=== PATIENT | female | born 1990 | race Caucasian/White ===

== ENCOUNTER 2018-06-04 16:46 | Emergency (ER) | payer MEDICAID ==
[~2018-06-04] VITALS: Ht 160 cm; Wt 61.9 kg
[~2018-06-04 16:46] MED LIST: BCP; FAMO20TA44 PO; HYDR-569 PO; IBUP-1984 PO; OMEP20CA10 PO
[2018-06-04 17:07] VITALS: BP 121/91
== END 2018-06-04 17:39 | disposition left against medical advice (07) ==
LOC: ER 16:47
DX: R51 Headache (principal); Z88.8 Allergy status to other drugs, medicaments and biological substances; Z79.899 Other long term (current) drug therapy
CPT/HCPCS: 99281

== ENCOUNTER 2018-07-22 22:36 | Emergency (ER) | payer MEDICAID ==
[~2018-07-22] VITALS: Ht 160 cm; Wt 57.5 kg
[2018-07-22 23:27] LABS: BASOPHILS % (AUTO) 0.5 % (0-1); EOSINOPHILS # (AUTO) 0.4 X10'3 (0-0.9); EOSINOPHILS % (AUTO) 4.8 % (0-6); HEMATOCRIT 43.5 % (35.0-45.0); HEMOGLOBIN 14.2 g/dl (12.0-16.0); LYMPHOCYTES # (AUTO) 2.5 X10'3 (1.1-4.8); LYMPHOCYTES % (AUTO) 33.7 % (21-51); MEAN CORPUSCULAR HEMOGLOBIN 29.1 PG (27.0-31.0); MEAN CORPUSCULAR HGB CONC 32.7 % (33.0-36.5); MEAN CORPUSCULAR VOLUME 89.1 FL (78-98); MEAN PLATELET VOLUME 8.6 FL (7.4-10.4); MONOCYTES # (AUTO) 0.4 X10'3 (0-0.9); MONOCYTES % (AUTO) 5.8 % (2-12); NEUTROPHILS # (AUTO) 4.1 X10'3 (1.8-7.7); NEUTROPHILS % (AUTO) 55.2 % (42-75); PLATELET COUNT 327 X10'3 (140-440); RED BLOOD COUNT 4.88 X10'6 (4.20-5.60); RED CELL DISTRIBUTION WIDTH 13.7 % (11.5-14.5); WHITE BLOOD COUNT 7.5 X10'3 (4.5-11.0)
[2018-07-22 23:38] LABS: CLARITY,URINE SLIGHTLY CLOUDY (Clear); COLOR,URINE YELLOW (Yellow); GLUCOSE, URINE NEGATIVE (Neg); KETONES,URINE NEGATIVE (Neg); LEUKOCYTE ESTERASE ,URINE SMALL (Neg); NITRITES, URINE NEGATIVE (Neg); OCCULT BLOOD,URINE LARGE (Neg); PH,URINE 6.5 (4.8-8.0); PROTEIN,URINE NEGATIVE (Neg); UROBILINOGEN,URINE 0.2 E.U/dL (0.2-1.0)
[2018-07-22 23:41] LABS: URINE AMPHETAMINE SCREEN NEGATIVE (Neg); URINE BARBITUATE SCREEN NEGATIVE (Neg); URINE BENZODIAZEPINES SCREEN NEGATIVE (Neg); URINE CANNABINOID SCREEN NEGATIVE (Neg); URINE COCAINE SCREEN NEGATIVE (Neg); URINE METHADONE SCREEN NEGATIVE (Neg); URINE OPIATE SCREEN NEGATIVE (Neg); URINE PHENCYCLIDINE SCREEN NEGATIVE (Neg)
[2018-07-22 23:44] LABS: UA COLLECTION TYPE CLN CATCH MIDSTREAM
[2018-07-22 23:47] LABS: ALANINE AMINOTRANSFERASE 38 U/L (12-78); ALBUMIN 4.2 G/DL (3.4-5.0); ALKALINE PHOSPHATASE 75 IU/L (46-116); ANION GAP 11 (8-16); ASPARTATE AMINO TRANSFERASE 22 U/L (10-37); BILIRUBIN,TOTAL 0.6 MG/DL (0.1-1.0); BLOOD UREA NITROGEN 11 MG/DL (7-18); BUN/CREATININE RATIO 13.8 (6.6-38.0); CHLORIDE 103 MMOL/L (99-107); GLUCOSE 101 MG/DL (70-104); POTASSIUM 3.8 MMOL/L (3.5-5.1); SODIUM 139 MMOL/L (135-145); TOTAL CARBON DIOXIDE 25.1 MMOL/L (24-32); TOTAL PROTEIN 8.3 G/DL (6.4-8.2); eGFR 85 ML/MIN
[2018-07-22 23:48] LABS: BACTERIA,URINE FEW /HPF (Neg); RBC,URINE 0-2 /HPF (0-2); SPERM FEW /HPF; SQUAMOUS EPITHELIAL CELL,UR MODERATE /LPF (FEW)
[2018-07-22 23:57] LABS: ETHANOL < 0.010 GM/DL (0.0-0.010)
[2018-07-23 00:11] LABS: URINE HCG NEGATIVE (NEG)
[2018-07-23 00:21] VITALS: BP 108/74
[2018-07-23] MEDS ORDERED: aspirin 325mg tablet PO ONE (01:20)
[2018-07-23] MEDS ORDERED: normal saline 1000ml 1,000 ML IV SCH (02:09)
[2018-07-23] MEDS ORDERED: morphine 2 MG/ML inj. syringe IV PRN ×2 (02:10)
[2018-07-23] MEDS ORDERED: magnesium hydroxide 30ml (MOM) UD suspension PO PRN (02:10)
[2018-07-23] MEDS ORDERED: diphenhydrAMINE 50 mg/ml inj IV PRN (02:10)
[2018-07-23] MEDS ORDERED: ondansetron/PF 4mg/2ml inj IV PRN (02:10)
[2018-07-23] MEDS ORDERED: mag hydrox/Alum hydrox/simeth 30ml oral suspension PO PRN (02:10)
[2018-07-23] MEDS ORDERED: acetaminophen 325mg tablet PO PRN ×2 (02:10)
[2018-07-23] MEDS ORDERED: diphenhydrAMINE 25mg capsule PO PRN (02:10)
[2018-07-23] MEDS ORDERED: bisacodyl 10mg suppository rectal RC PRN (02:10)
[2018-07-23] MEDS ORDERED: metoclopramide 5 mg/ml inj IV PRN (02:10)
[2018-07-23] MEDS ORDERED: HYDROcodone/acetaminophen 5mg/325mg tablet PO PRN (02:10)
[2018-07-23] MEDS ORDERED: HYDROmorphone 1 mg/ml syringe IV PRN ×2 (02:10)
[2018-07-23] MEDS ORDERED: acetaminophen 650mg rectal suppository RC PRN (02:10)
[2018-07-23] MEDS ORDERED: HYDROcodone/acetaminophen 10/325mg tab PO PRN (02:10)
[2018-07-23] MEDS ORDERED: normal saline 1000ml 1,000 ML IVB ONE (02:15)
[2018-07-23] MEDS ORDERED: nicotine 21mg patch - 24 hr TD ONE (02:20)
[2018-07-23] MEDS ORDERED: aspirin 81mg tab.chew PO ONE (02:20)
[2018-07-23] MEDS ORDERED: atorvastatin 20mg tablet PO SCH (08:00)
[2018-07-23] MEDS ORDERED: nitrofuran/nitrofuran macrocrysal 100 MG capsule PO SCH (08:00)
[2018-07-23] MEDS ORDERED: docusate sod 100mg capsule PO SCH (08:00)
[2018-07-23] MEDS ORDERED: temazepam 15mg capsule PO PRN (21:00)
== END 2018-07-23 02:26 | disposition left against medical advice (07) ==
LOC: ER 22:36
DX: I63.9 Cerebral infarction, unspecified (principal); R41.82 Altered mental status, unspecified; R41.3 Other amnesia; R51 Headache; F41.9 Anxiety disorder, unspecified; F32.9 Major depressive disorder, single episode, unspecified; F17.200 Nicotine dependence, unspecified, uncomplicated; Z91.018 Allergy to other foods; Z86.73 Personal history of transient ischemic attack (TIA), and cerebral infarction without residual deficits; Z86.718 Personal history of other venous thrombosis and embolism
CPT/HCPCS: 36415; 70450; 80053; 80305; 80320; 81001; 81025; 82948; 84443; 85025; 87088; 93005; 99285

== ENCOUNTER 2018-08-29 08:45 | Emergency (ER) | payer MEDICAID ==
[~2018-08-29] VITALS: Ht 160 cm; Wt 56.4 kg
[2018-08-29] MEDS ORDERED: normal saline 1000ML IV soln IVB ONE (09:00)
[2018-08-29 09:11] LABS: BASOPHILS % (AUTO) 0.5 % (0-1); EOSINOPHILS # (AUTO) 0.3 X10'3 (0-0.9); EOSINOPHILS % (AUTO) 4.3 % (0-6); HEMATOCRIT 39.9 % (35.0-45.0); HEMOGLOBIN 13.4 g/dl (12.0-16.0); LYMPHOCYTES # (AUTO) 1.5 X10'3 (1.1-4.8); LYMPHOCYTES % (AUTO) 24.1 % (21-51); MEAN CORPUSCULAR HEMOGLOBIN 30.1 PG (27.0-31.0); MEAN CORPUSCULAR HGB CONC 33.6 % (33.0-36.5); MEAN CORPUSCULAR VOLUME 89.4 FL (78-98); MONOCYTES # (AUTO) 0.4 X10'3 (0-0.9); MONOCYTES % (AUTO) 6.7 % (2-12); NEUTROPHILS # (AUTO) 3.9 X10'3 (1.8-7.7); NEUTROPHILS % (AUTO) 64.4 % (42-75); PLATELET COUNT 336 X10'3 (140-440); RED BLOOD COUNT 4.46 X10'6 (4.20-5.60); RED CELL DISTRIBUTION WIDTH 13.2 % (11.5-14.5); WHITE BLOOD COUNT 6.1 X10'3 (4.5-11.0)
[2018-08-29 09:30] LABS: ALANINE AMINOTRANSFERASE 49 U/L (12-78); ALBUMIN 3.9 G/DL (3.4-5.0); ALKALINE PHOSPHATASE 85 IU/L (46-116); ANION GAP 8 (8-16); ASPARTATE AMINO TRANSFERASE 23 U/L (10-37); BILIRUBIN,TOTAL 0.5 MG/DL (0.1-1.0); BLOOD UREA NITROGEN 11 MG/DL (7-18); BUN/CREATININE RATIO 15.7 (6.6-38.0); CALCIUM 8.8 MG/DL (8.5-10.1); CHLORIDE 104 MMOL/L (99-107); GLUCOSE 99 MG/DL (70-104); SODIUM 139 MMOL/L (135-145); TOTAL CARBON DIOXIDE 27.1 MMOL/L (24-32); TOTAL PROTEIN 7.8 G/DL (6.4-8.2); eGFR > 90 ML/MIN
[2018-08-29 09:33] LABS: ETHANOL < 0.010 GM/DL (0.0-0.010); TROPONIN I < 0.04 NG/ML (0.0-0.05)
[2018-08-29 09:38] LABS: INR 1.1 INR; PROTHROMBIN TIME 10.7 SECONDS (9.0-12.0)
[2018-08-29] MEDS ORDERED: dexamethasone sod phosphate 10mg/ml inj IV STA (09:56)
[2018-08-29] MEDS ORDERED: ketorolac trometh. 30mg/ml inj. IV ONE (10:00)
[2018-08-29] MEDS ORDERED: metoclopramide 5 mg/ml inj IV ONE (10:00)
[2018-08-29 10:25] LABS: CLARITY,URINE SLIGHTLY CLOUDY (Clear); COLOR,URINE YELLOW (Yellow); GLUCOSE, URINE NEGATIVE (Neg); KETONES,URINE NEGATIVE (Neg); LEUKOCYTE ESTERASE ,URINE NEGATIVE (Neg); NITRITES, URINE NEGATIVE (Neg); OCCULT BLOOD,URINE SMALL (Neg); PROTEIN,URINE NEGATIVE (Neg); UROBILINOGEN,URINE 0.2 E.U/dL (0.2-1.0)
[2018-08-29 10:36] LABS: URINE AMPHETAMINE SCREEN NEGATIVE (Neg); URINE BARBITUATE SCREEN NEGATIVE (Neg); URINE BENZODIAZEPINES SCREEN NEGATIVE (Neg); URINE CANNABINOID SCREEN NEGATIVE (Neg); URINE COCAINE SCREEN NEGATIVE (Neg); URINE METHADONE SCREEN NEGATIVE (Neg); URINE OPIATE SCREEN NEGATIVE (Neg); URINE PHENCYCLIDINE SCREEN NEGATIVE (Neg)
[2018-08-29 10:38] LABS: MUCUS STRANDS MANY /LPF (Neg); SQUAMOUS EPITHELIAL CELL,UR MANY /LPF (FEW); UA COLLECTION TYPE CLN CATCH MIDSTREAM
[2018-08-29 10:39] LABS: BACTERIA,URINE 1+ /HPF (Neg); RBC,URINE 0-2 /HPF (0-2); WBC,URINE 0-4 /HPF (0-4)
[2018-08-29 12:01] VITALS: BP 91/59
== END 2018-08-29 12:03 | disposition home or self-care (01) ==
LOC: ER 08:46
DX: G43.909 Migraine, unspecified, not intractable, without status migrainosus (principal); Z86.73 Personal history of transient ischemic attack (TIA), and cerebral infarction without residual deficits; Z98.890 Other specified postprocedural states; Z88.8 Allergy status to other drugs, medicaments and biological substances; Z79.899 Other long term (current) drug therapy
CPT/HCPCS: 36415; 70450; 71045; 80053; 80305; 80320; 81001; 82948; 84484; 85025; 85610; 93005; 96374; 96375; 99284; J1100; J1885; J2765; J7030

== ENCOUNTER 2020-03-05 21:59 | Emergency (ER) | payer MEDICAID ==
[~2020-03-05] VITALS: Ht 160 cm; Wt 55.9 kg
[~2020-03-05 21:59] MED LIST changes: -OMEP20CA10 PO; +OMEP20CA15 PO
[2020-03-05 22:11] VITALS: BP 101/60
--- NOTE | 2020-03-06 01:36 | NUR ---
took over pt's care. pt not in room. per jacklyn at front office attendant, she walked out approximately an hour ago. Dr. Rivero made aware.
== END 2020-03-06 01:36 | disposition left against medical advice (07) ==
LOC: ER 21:59
DX: T81.9XXA Unspecified complication of procedure, initial encounter (principal); Z53.21 Procedure and treatment not carried out due to patient leaving prior to being seen by health care provider

== ENCOUNTER 2021-05-01 23:24 | Emergency (ER) | payer MEDICAID ==
[~2021-05-01] VITALS: Ht 160 cm; Wt 56.4 kg
[2021-05-01 23:51] VITALS: BP 104/68
== END 2021-05-02 00:31 | disposition home or self-care (01) ==
LOC: ER 23:26
DX: S80.12XA Contusion of left lower leg, initial encounter (principal); Z86.73 Personal history of transient ischemic attack (TIA), and cerebral infarction without residual deficits; Z98.891 History of uterine scar from previous surgery; Z79.899 Other long term (current) drug therapy; W23.1XXA Caught, crushed, jammed, or pinched between stationary objects, initial encounter; Y93.89 Activity, other specified; Y92.89 Other specified places as the place of occurrence of the external cause; Y99.8 Other external cause status
CPT/HCPCS: 73590; 99283

== ENCOUNTER 2021-11-05 23:20 | Emergency (ER) | payer MEDICAID ==
[~2021-11-05] VITALS: Ht 160 cm; Wt 60.4 kg
[2021-11-05 23:22] VITALS: BP 105/71
== END 2021-11-06 00:28 | disposition home or self-care (01) ==
LOC: ER 23:20
DX: S00.83XA Contusion of other part of head, initial encounter (principal); F41.9 Anxiety disorder, unspecified; F32.9 Major depressive disorder, single episode, unspecified; W22.8XXA Striking against or struck by other objects, initial encounter; Y93.89 Activity, other specified; Y92.89 Other specified places as the place of occurrence of the external cause; Y99.8 Other external cause status
CPT/HCPCS: 73090; 99283

== ENCOUNTER 2023-11-18 10:13 | Emergency (ER) | payer MEDICAID ==
[~2023-11-18] VITALS: Ht 160 cm; Wt 66.8 kg
[2023-11-18 10:19] VITALS: BP 122/72; PULSE 86; RESP 16; TEMP 97.7; O2SAT 96
== END 2023-11-18 11:48 | disposition home or self-care (01) ==
LOC: ER 10:13
DX: S93.492A Sprain of other ligament of left ankle, initial encounter (principal); S90.32XA Contusion of left foot, initial encounter; F41.9 Anxiety disorder, unspecified; F32.A Depression, unspecified; Z86.73 Personal history of transient ischemic attack (TIA), and cerebral infarction without residual deficits; Z98.890 Other specified postprocedural states; Z88.8 Allergy status to other drugs, medicaments and biological substances; Z79.1 Long term (current) use of non-steroidal anti-inflammatories (NSAID); W18.39XA Other fall on same level, initial encounter; Y93.89 Activity, other specified; Y92.89 Other specified places as the place of occurrence of the external cause; Y99.8 Other external cause status
CPT/HCPCS: 73610; 99284; L4360

== ENCOUNTER 2024-03-23 23:41 | Emergency (ER) | payer MEDICAID ==
[~2024-03-23] VITALS: Ht 157.5 cm; Wt 62.3 kg
[2024-03-23 23:48] VITALS: TEMP 97.8
[2024-03-24] MEDS ORDERED: SULF1TAB49 PO (02:33)
[2024-03-24] MEDS: sulfamethoxazole/trimethoprim DS (800/160mg) tablet PO ONE (02:43)
[2024-03-24 02:46] VITALS: BP 128/78; PULSE 85; RESP 14; O2SAT 98
== END 2024-03-24 02:50 | disposition home or self-care (01) ==
LOC: ER 23:41
DX: S80.861A Insect bite (nonvenomous), right lower leg, initial encounter (principal); Z91.09 Other allergy status, other than to drugs and biological substances; Z91.018 Allergy to other foods; Z79.1 Long term (current) use of non-steroidal anti-inflammatories (NSAID); Z79.899 Other long term (current) drug therapy; Z98.890 Other specified postprocedural states; W57.XXXA Bitten or stung by nonvenomous insect and other nonvenomous arthropods, initial encounter; Y93.89 Activity, other specified; Y92.89 Other specified places as the place of occurrence of the external cause; Y99.8 Other external cause status
CPT/HCPCS: 99283